=== PATIENT | male | born 1985 | race African-American/Black ===

== ENCOUNTER 2017-12-09 13:11 | Emergency (ER) | payer OTHER ==
[~2017-12-09] VITALS: Ht 182.9 cm; Wt 81.6 kg
[2017-12-09 13:15] VITALS: BP 112/72
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
--- NOTE | 2017-12-09 14:45 | Diagnostic Imaging Report ---
Indication: Neck pain. Technique: Continuous helical imaging of the cervical spine was obtained transaxially from the skull base to the upper thoracic spine. 2-D coronal and sagittal reformatted images were obtained. Automatic Exposure Control was utilized. Total Dose length Product (DLP): 368.[address] Dose Index Volume (CTDIvol): 16.59 mGy Comparison: None Findings: There is no evidence of an acute fracture or malalignment. Atlantoaxial alignment appears normal. Height and configuration of the vertebral bodies and intervertebral discs are within normal limits. Uncovertebral joints and facets are unremarkable. There is no soft tissue swelling. Impression: Negative cervical spine CT The CT scanner at [facility] is accredited by the [employer] and the scans are performed using dose optimization techniques as appropriate to a performed exam including Automatic Exposure control.
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
[2017-12-09] MEDS ORDERED: Norco 5mg/325mg tab ORAL ONE (15:00)
[2017-12-09 15:07] VITALS: BP 124/71
== END 2017-12-09 15:11 ==
LOC: EDBD 13:11 → EMR 13:42
DX: F15.10 Other stimulant abuse, uncomplicated (principal); F12.90 Cannabis use, unspecified, uncomplicated; M54.2 Cervicalgia; R10.9 Unspecified abdominal pain; R51 Headache; V29.9XXA Motorcycle rider (driver) (passenger) injured in unspecified traffic accident, initial encounter; Y92.9 Unspecified place or not applicable; J45.909 Unspecified asthma, uncomplicated
CPT/HCPCS: 70450; 72125; 74176; 80307; 99284